=== PATIENT | female | born 1990 | race African-American/Black ===

== ENCOUNTER 2016-12-25 23:17 | Emergency (ER) | payer OTHER ==
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
[2016-12-25 23:46] VITALS: TEMP 98.6; BMI 27.7
[2016-12-26] MEDS ORDERED: IBUPROFEN 400 MG TABLET (FP) PO ONE ×2 (00:25→00:48)
[2016-12-26 01:00] VITALS: BP 104/72; PULSE 59
== END 2016-12-26 01:00 | disposition home or self-care (01) ==
LOC: JER 23:17
PROC: 2W3RX1Z Immobilization of Left Lower Leg using Splint (ICD-10-PCS; principal; 2016-12-25)
DX: S93.492A Sprain of other ligament of left ankle, initial encounter (principal); V49.49XA Driver injured in collision with other motor vehicles in traffic accident, initial encounter; Y92.488 Other paved roadways as the place of occurrence of the external cause; Y93.89 Activity, other specified; Y99.8 Other external cause status
CPT/HCPCS: 73610-TC-LT; 73630-TC-LT; 99281-25

== ENCOUNTER 2023-11-25 13:34 | Emergency (ER) | payer OTHER ==
[2023-11-25 13:52] VITALS: BP 111/80; PULSE 53; RESP 16; TEMP 98.6; BMI 73.3
[2023-11-25] MEDS ORDERED: ACETAMINOPHEN 325 MG TABLET (FP) ONE (14:16)
[2023-11-25] MEDS: ACETAMINOPHEN 500 MG TABLET (FP) PO ONE (14:18)
== END 2023-11-25 15:29 | disposition home or self-care (01) ==
LOC: FER 13:34
DX: S60.051A Contusion of right little finger without damage to nail, initial encounter (principal); W23.0XXA Caught, crushed, jammed, or pinched between moving objects, initial encounter
CPT/HCPCS: 73130-TC-RT-FY; 99283-25